=== PATIENT | female | born 1980 | race Hispanic/Latino ===

== ENCOUNTER 2020-05-30 15:36 | Emergency (ER) | payer SELFPAY | END 2020-05-30 17:00 | disposition home or self-care (01) | LOC: EDH 15:36 | DX: E86.1 Hypovolemia (principal); M54.2 Cervicalgia; R11.0 Nausea; R06.02 Shortness of breath | CPT/HCPCS: 99281 ==

== ENCOUNTER 2020-06-02 | Emergency (ER) | payer SELFPAY | END 2020-06-02 12:59 | disposition left against medical advice (07) ==